=== PATIENT | female | born 2000 | race African-American/Black ===

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

== ENCOUNTER 2023-11-27 21:01 | Emergency (ER) | payer BC ==
[2023-11-27 21:15] VITALS: TEMP 98.8; BMI 23.3
[2023-11-27] MEDS ORDERED: ONDANSETRON 4 MG/2 ML VIAL ONE (22:15)
[2023-11-27] MEDS ORDERED: ACETAMINOPHEN INJECTION 100 ML IVPB ONE (22:15)
[2023-11-27 22:18] LABS: BASO % 0.2 % (0-2.0); EOS % 0.2 % (0-4.5); HEMATOCRIT 45.5 % (32.4-45.2); HEMOGLOBIN 15.5 GM/dL (10.7-15.3); LYMPH % 15.2 % (8-40); MCH 30.4 pg (25.7-33.7); MCHC 34.1 g/dl (32.0-36.0); MEAN CELL VOLUME 89.1 fl (80-96); NEUT % 76.4 % (42.8-82.8); PLATELET COUNT 257 10^3/uL (134-434); RDW 14.4 % (11.6-15.6)
[2023-11-27] MEDS: LACTATED RINGERS SOLUTION 1000 ML INFUS.BAG IV ONE ×2 (22:24→22:50)
[2023-11-27] MEDS: ACETAMINOPHEN 1000 MG/100 ML BAG IVPB ONE (22:24)
[2023-11-27] MEDS: ONDANSETRON 4 MG/2 ML VIAL IVPUSH ONE (22:24)
[2023-11-27 22:36] LABS: POTASSIUM 3.8 mmol/L (3.5-5.1)
[2023-11-27 22:38] LABS: CALCIUM 9.5 mg/dL (8.5-10.1)
[2023-11-27 22:39] LABS: BLOOD UREA NITROGEN 23.6 mg/dL (7-18)
[2023-11-27 22:42] LABS: CREATININE 0.7 mg/dL (0.55-1.3)
[2023-11-27 22:43] LABS: TOT PROT 7.4 g/dl (6.4-8.2)
[2023-11-27 22:44] LABS: BILIRUBIN,TOTAL 0.6 mg/dL (0.2-1)
[2023-11-27 23:57] LABS: EPI CELLS >36 /uL (0-25.1); HYALINE CASTS 1 /uL (0-3.1); PH,URINE 6.5 (5.0-8.0); URINE APPEARANCE CLEAR; URINE BACTERIA 802 /uL (0-1359); URINE BILIRUBIN NEGATIVE (NEGATIVE); URINE COLOR YELLOW; URINE GLUCOSE (UA) NEGATIVE (NEGATIVE); URINE KETONE 2+ (NEGATIVE); URINE LEUK ESTERASE NEGATIVE (NEGATIVE); URINE NITRITE NEGATIVE (NEGATIVE); URINE PROTEIN 1+ (NEGATIVE); URINE RBC 91 /uL (0-23.9); URINE WBC 10 /uL (0-25.8)
[2023-11-28 00:18] VITALS: BP 127/81; PULSE 79; RESP 16
== END 2023-11-28 00:17 | disposition home or self-care (01) ==
LOC: JER 21:01
PROC: 3E030NZ Introduction of Analgesics, Hypnotics, Sedatives into Peripheral Vein, Open Approach (ICD-10-PCS; principal; 2023-11-27)
PROC: 3E030GC Introduction of Other Therapeutic Substance into Peripheral Vein, Open Approach (ICD-10-PCS; 2023-11-27)
DX: R11.2 Nausea with vomiting, unspecified (principal); R19.7 Diarrhea, unspecified; Z20.822 Contact with and (suspected) exposure to COVID-19
CPT/HCPCS: 0241U-QW; 36415; 80053; 81003; 83690; 84703; 85025; 87086; 99284-25; J0131

== ENCOUNTER 2025-06-14 12:21 | Emergency (ER) | payer BC ==
[2025-06-14 13:05] VITALS: RESP 18; BMI 23.6
[2025-06-14 13:16] LABS: ABSOLUTE IMMATURE GRANULOCYTES 0.03 x10^3/uL (0.0-0.031); BASOPHILS # 0.03 x10^3/uL (0.01-0.08); EOSINOPHIL % 0.9 % (0.7-5.8); EOSINOPHILS # 0.09 x10^3/uL (0.04-0.36); MCHC 35.2 g/dl (32.2-35.5); MEAN CELL VOLUME 87.0 fl (79.4-94.8); MEAN PLT VOLUME 10.9 fl (9.4-12.3); MONOCYTE # 0.70 x10^3/uL (0.24-0.86); MONOCYTE % 6.8 % (4.7-12.5); RDW 12.7 % (12.1-16.5)
[2025-06-14] MEDS ORDERED: ACETAMINOPHEN INJECTION 100 ML ONE (13:20)
[2025-06-14] MEDS ORDERED: ONDANSETRON 4 MG/2 ML VIAL ONE (13:20)
[2025-06-14 13:23] LABS: EPI CELLS >36 /uL (0-25.1); HYALINE CASTS 7 /uL (0-3.1); URINE APPEARANCE CLOUDY; URINE BACTERIA 748 /uL (0-1359); URINE BILIRUBIN NEGATIVE (NEGATIVE); URINE COLOR DK YELLOW; URINE GLUCOSE (UA) NEGATIVE (NEGATIVE); URINE KETONE 1+ (NEGATIVE); URINE LEUK ESTERASE TRACE (NEGATIVE); URINE NITRITE NEGATIVE (NEGATIVE); URINE PROTEIN 1+ (NEGATIVE); URINE RBC 10 /uL (0-23.9); URINE UROBILINOGEN 1.0 mg/dL (0.2-1.0); URINE WBC 63 /uL (0-25.8)
[2025-06-14] MEDS: ACETAMINOPHEN 1000 MG/100 ML BAG IVPB ONE (13:35)
[2025-06-14] MEDS: SODIUM CHLORIDE 0.9% 500 ML INFUS.BAG IV ONE (13:35)
[2025-06-14] MEDS: ONDANSETRON 4 MG/2 ML VIAL IVPB ONE (13:35)
[2025-06-14 13:38] LABS: URINE CRYSTALS PRESENT /hpf
[2025-06-14 13:39] LABS: GLUCOSE,RANDOM 84.0 mg/dL (74-106); TOT PROT 7.3 g/dl (6.4-8.2)
[2025-06-14 13:40] LABS: CO2 21.0 mmol/L (21-32)
[2025-06-14 13:42] LABS: ALK PHOS 44.0 U/L (40-150)
[2025-06-14 13:44] LABS: SGPT/ALT 49.0 U/L (0-55)
[2025-06-14 13:45] LABS: CREATININE 0.51 mg/dL (0.55-1.3); SGOT/AST 39.0 U/L (5-34)
[2025-06-14 14:05] LABS: HCV DIAGNOSTIC IN-HOUSE W/RFLX NON-REACTIVE (NONREACTIVE); HIV INTERPRETATION NEGATIVE (NEGATIVE)
[2025-06-14] MEDS ORDERED: CEPHALEXIN MONOHYDRATE 500 MG CAPSULE (UD) ONE (14:23)
[2025-06-14] MEDS: CEPHALEXIN MONOHYDRATE 500 MG CAPSULE (UD) PO ONE (14:26)
[2025-06-14 15:35] VITALS: BP 116/73; PULSE 85; TEMP 98.4
== END 2025-06-14 15:36 | disposition home or self-care (01) ==
LOC: JER 12:21
PROC: 3E033NZ Introduction of Analgesics, Hypnotics, Sedatives into Peripheral Vein, Percutaneous Approach (ICD-10-PCS; principal; 2025-06-14)
PROC: 3E033GC Introduction of Other Therapeutic Substance into Peripheral Vein, Percutaneous Approach (ICD-10-PCS; 2025-06-14)
DX: O21.9 Vomiting of pregnancy, unspecified (principal); O99.891 Other specified diseases and conditions complicating pregnancy; R82.998 Other abnormal findings in urine; Z3A.00 Weeks of gestation of pregnancy not specified
CPT/HCPCS: 36415; 80053; 81003; 83690; 84702; 85025; 86803; 87389; 99284-25